=== PATIENT | female | born 1935 | race Caucasian/White ===

== ENCOUNTER 2017-07-12 18:52 | Observation (INO) | payer MEDICARE, OTHER ==
[2017-07-12 20:10] LABS: Troponin I 0.022 ng/mL (< 0.028)
[2017-07-12 21:26] VITALS: BMI 27.6
[2017-07-12 23:36] LABS: Troponin I 0.016 ng/mL (< 0.028)
[2017-07-13] MEDS ORDERED: Ondansetron ODT 4 MG TAB PO PRN (00:14)
[2017-07-13] MEDS ORDERED: Acetaminophen 500 MG TAB PO PRN (00:14)
[2017-07-13] MEDS ORDERED: hydrALAZINE 20 MG/ML VIAL SLOW IVP PRN (00:14)
[2017-07-13] MEDS ORDERED: cloNIDine 0.1 MG TAB PO PRN (00:14)
[2017-07-13] MEDS ORDERED: Ondansetron HCl/PF 4 MG/2 ML Vial IVP PRN (00:14)
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
[2017-07-13 04:53] LABS: Anion Gap 9 mmol/L (10-20); BUN (Urea Nitrogen) 16 mg/dL (9.8-20.1); Calc. Creatinine Clearance 58 mL/min (70-130); Calcium 8.9 mg/dL (7.8-10.44); Carbon Dioxide 27 mmol/L (23-31); Cardiac Risk 2.8 (Less than 4.5); Chloride 106 mmol/L (98-107); Cholesterol 151 mg/dl (< 200 Desired); Estimated GFR-MDRD 68; Glucose 97 mg/dL (83-110); HDL Cholesterol 53 mg/dL (>60 Neg Risk); LDL Cholesterol, Calculated 86 mg/dL; Potassium 3.3 mmol/L (3.5-5.1); Sodium 139 mmol/L (136-145); Triglycerides 58 mg/dL (Less than 150)
[2017-07-13 04:58] LABS: Hemoglobin 12.5 g/dL (12.0-16.0); Lymphocytes 50 % (21-51); MDiff Complete? YES; Mean Corpuscular HGB CONC 32.2 g/dL (32.0-36.0); Mean Corpuscular Hemoglobin 32.4 pg (27.0-31.0); Mean Platelet Volume 8.4 fL (7.4-10.4); Monocytes 6 % (0-10); Neutrophil 43 % (42-75); PLT Morphology Comment Appears Adequate; Platelet Count 173 thou/uL (130-400); RBC Distribution Width 12.4 % (11.5-14.5); Red Blood Cell (RBC) Count 3.85 mill/uL (4.20-5.40); White Blood Cell (WBC) Count 2.8 thou/uL (4.8-10.8)
[2017-07-13] MEDS ORDERED: Amlodipine 5 MG TAB PO SCH (09:00)
[2017-07-13] MEDS ORDERED: Famotidine 20 MG TAB PO SCH (09:00)
[2017-07-13] MEDS ORDERED: Hydrochlorothiazide 25 MG TAB PO SCH (09:00)
[2017-07-13] MEDS ORDERED: Potassium Chloride 20 MEQ TAB PO SCH (11:30)
--- NOTE | 2017-07-13 11:30 | PDOC.PN ---
- Subjective Encounter Start Date: 07/13/17 Encounter Start Time: 11:24 Ms. Singh was seen today in follow-up of chest pain. She says she feels much better, the chest pain has completely resolved. She denies any shortness of breath. she says she feels normal. - Objective Resuscitation Status: Resuscitation Status FULL:Full Resuscitation MAR Reviewed: Yes Vital Signs & Weight: Vital Signs (12 hours) Temp Pulse Resp BP Pulse Ox 07/13/17 09:17 98.7 F 59 L 16 07/13/17 07:07 98.7 F 59 L 16 131/72 94 L 07/13/17 03:15 98.9 F 62 18 118/56 L 96 Weight Weight 150 lb 8 oz I&O: 07/12/17 07/13/17 07/14/17 06:59 06:59 06:59 Intake Total 240 Balance 240 Result Diagrams: 07/13/17 03:53 07/13/17 03:53 Phys Exam - Physical Examination HEENT: PERRLA Respiratory: no wheezing, no rales, no rhonchi, clear to auscultation bilateral Cardiovascular: RRR, no significant murmur Gastrointestinal: soft, non-tender, positive bowel sounds Musculoskeletal: no edema Dx/Plan (1) Chest pain Code(s): R07.9 - CHEST PAIN, UNSPECIFIED Status: Acute (2) Aortic stenosis, moderate Code(s): I35.0 - NONRHEUMATIC AORTIC (VALVE) STENOSIS Status: Chronic (3) Hypertension Code(s): I10 - ESSENTIAL (PRIMARY) HYPERTENSION Status: Chronic - Plan * Chest Pain- resolved. This is atypical, and suspected musculo-skeletal- troponins are negative * Await Echo * HTN- blood pressure is stable * Likely discharge later today.
[2017-07-13 12:07] VITALS: BP 122/59; TEMP 98.3
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
--- NOTE | 2017-08-02 15:25 | EKG ---
Test Reason : CHEST PAIN Blood Pressure : / mmHG Vent. Rate : 061 BPM Atrial Rate : 061 BPM P-R Int : 182 ms QRS Dur : 132 ms QT Int : 510 ms P-R-T Axes : 052 074 012 degrees QTc Int : 513 ms Normal sinus rhythm Non-specific intra-ventricular conduction block T wave abnormality, consider inferior ischemia Abnormal ECG Confirmed by TOÑA MCGHEE ([id number]), fashion editor MALAIKA ROBERSON ([id number]) on 08/02/2017 3:24:41 PM Referred By: Confirmed By:TOÑA MCGHEE
== END 2017-07-13 14:52 | disposition home or self-care (01) ==
LOC: ERS 18:52 → 2SW 19:33
PROVIDERS: ADMIT Family Medicine; ATTEND Family Medicine
DX: R07.89 Other chest pain (principal); I10 Essential (primary) hypertension; I35.0 Nonrheumatic aortic (valve) stenosis; E87.6 Hypokalemia; Z79.899 Other long term (current) drug therapy; Z90.89 Acquired absence of other organs; Z98.890 Other specified postprocedural states
CPT/HCPCS: 80048; 80061; 84484; 85007; 85027; 93005; 93306; 99285; G0378; 36415

== ENCOUNTER 2017-10-15 09:21 | Outpatient (CLI) | payer MEDICARE, OTHER ==
[2017-10-15 10:32] LABS: Mean Corpuscular HGB CONC 31.9 g/dL (32.0-36.0); Mean Corpuscular Hemoglobin 32.4 pg (27.0-31.0); Mean Platelet Volume 8.8 fL (7.4-10.4); Platelet Count 204 thou/uL (130-400); RBC Distribution Width 12.5 % (11.5-14.5); Red Blood Cell (RBC) Count 3.71 mill/uL (4.20-5.40); White Blood Cell (WBC) Count 5.1 thou/uL (4.8-10.8)
[2017-10-15 10:35] LABS: INR-International Normal Ratio 1.1; PTT 31.9 SEC (22.9-36.1); Prothrombin Time 14.2 SEC (12.0-14.7)
[2017-10-15 10:56] LABS: ALT (SGPT) 19 U/L (8-55); AST (SGOT) 22 U/L (5-34); Alkaline Phosphatase 51 U/L (40-150); Anion Gap 12 mmol/L (10-20); BUN (Urea Nitrogen) 24 mg/dL (9.8-20.1); Bilirubin, Total 0.4 mg/dL (0.2-1.2); Calc. Creatinine Clearance 0 mL/min (70-130); Carbon Dioxide 23 mmol/L (23-31); Cardiac Risk 2.6 (Less than 4.5); Chloride 109 mmol/L (98-107); Cholesterol 171 mg/dl (< 200 Desired); Estimated GFR-MDRD 60; Globulin 2.4 g/dL (2.4-3.5); Glucose 91 mg/dL (83-110); HDL Cholesterol 66 mg/dL (>60 Neg Risk); LDL Cholesterol, Calculated 98 mg/dL; Potassium 3.5 mmol/L (3.5-5.1); Protein, Total 6.4 g/dL (6.0-8.3); Sodium 140 mmol/L (136-145); Triglycerides 37 mg/dL (Less than 150)
--- NOTE | 2017-10-15 22:09 | EKG ---
Test Reason : Blood Pressure : / mmHG Vent. Rate : 062 BPM Atrial Rate : 062 BPM P-R Int : 180 ms QRS Dur : 130 ms QT Int : 478 ms P-R-T Axes : 069 088 042 degrees QTc Int : 485 ms Normal sinus rhythm Non-specific intra-ventricular conduction block Nonspecific T wave abnormality Abnormal ECG When compared with ECG of 12-JUL-2017 19:02, No significant change was found Confirmed by KALLIE TAMAYO M.D. ([id number]) on 10/15/2017 10:09:30 PM Referred By: JOCELYNE Confirmed By:KALLIE TAMAYO M.D.
== END 2017-10-15 09:22 | disposition home or self-care (01) ==
LOC: LABBT 09:21
PROVIDERS: ATTEND Internal Medicine Cardiovascular Disease
DX: Z01.818 Encounter for other preprocedural examination (principal); R01.1 Cardiac murmur, unspecified
CPT/HCPCS: 80053; 80061; 85027; 85610; 85730; 93005; 93010

== ENCOUNTER → 2017-10-30 | Day surgery (SDC) | payer MEDICARE, OTHER ==
[2017-10-15 10:18] VITALS: BMI 27.1
[~2017-10-30] MED LIST: Diazepam 5 MG TAB ONE; Iopamidol 370 76% 100 ML VIAL ONE; Lidocaine 1% (PF) 30 ML VIAL ONE; Midazolam HCl 2 mg/2 ml Vial ONE
[2017-10-30 07:11] LABS: Cardiac Risk 2.6 (Less than 4.5)
--- NOTE | 2017-10-30 17:25 | CON ---
DATE OF CONSULTATION: 10/30/2017 HISTORY OF PRESENT ILLNESS: Ms. Singh is an 82-year-old woman, who was brought in for elective car diac catheterization today. She has history of aortic stenosis, which has been followed by Dr. Troy medel in [place]. She had a recent echo in 06/2017, which showed a moderate to severe aortic stenosis and an ejection fraction of 55% to 60%. Since that time, she has had progressive shortness of breat h. She was brought in today for cardiac catheterization, which revealed severe LAD and OM branch gabriele noses. Her valve data at the time of catheterization showed a peak gradient of 49, a mean gradient o f 41, and an aortic valve area of 0.42. I have been asked to see her to discuss aortic valve replace ment and coronary artery bypass grafting. PAST MEDICAL HISTORY: 1. Hypertension. 2. Aortic stenosis. 3. Coronary artery disease. PAST SURGICAL HISTORY: 1. Tonsillectomy. 2. Bilateral greater saphenous vein stripping for varicose veins. MEDICATIONS AT HOME: 1. Amlodipine 5 mg every day. 2. Hydrochlorothiazide 12.5 mg daily. 3. Quinapril 20 mg every day. ALLERGIES: None. SOCIAL HISTORY: She lives at home in [facility] with her . Her daughter lives across the street. She continues to do most of her daily activities until shortness of breath has begun to limit her a ctivity. REVIEW OF SYSTEMS: Ten point review of systems is performed and is negative except as above. PHYSICAL EXAMINATION: GENERAL: This is a well-developed, well-nourished woman resting comfortably post-catheterization. VITAL SIGNS: Her heart rate is 78 and regular, blood pressure is 120/70. HEENT: Sclerae nonicteric. Pupils equal and round bilaterally. NECK: Supple. There is no adenopathy. LUNGS: Chest is clear bilaterally. HEART: Rhythm is regular. She has a harsh systolic ejection murmur heard throughout precordium. ABDOMEN: Soft and nontender. EXTREMITIES: No cyanosis, clubbing or edema. VASCULAR: She has palpable carotid, radial, femoral and dorsalis pedis pulses bilaterally. She does have scars from greater saphenous vein stripping in the past. Radial artery Praveen's test was perfor med in the left arm and her left radial artery is adequate for harvest with good ulnar flow. LABORATORY DATA: Of note, hemoglobin is 12.0, platelet count 204,000. Creatinine is 0.9, potassium is 3.5. PT/INR is 1.1. I have reviewed her chest x-ray, which is clear with no dominant lung mass. She does have a thin mediastinum. ASSESSMENT AND PLAN: This is a pleasant 82-year-old woman with severe aortic stenosis and 2-vessel c oronary artery disease. I have discussed aortic valve replacement with bioprosthetic valve and coron reji artery bypass grafting, probably with a mammary artery to left anterior descending and left radia l artery to her obtuse marginal. Risks, benefits, and options have been outlined with her and she is agreeable to proceed.
== END ==
LOC: CCL 05:53
PROVIDERS: ATTEND Internal Medicine Cardiovascular Disease
PROC: 4A023N8 Measurement of Cardiac Sampling and Pressure, Bilateral, Percutaneous Approach (ICD-10-PCS; principal; 2017-10-30)
DX: I25.10 Atherosclerotic heart disease of native coronary artery without angina pectoris (principal); I35.0 Nonrheumatic aortic (valve) stenosis; I10 Essential (primary) hypertension; Z98.890 Other specified postprocedural states
CPT/HCPCS: 76942; 80061; 93460; 93561; C1769; 36415; 99152; 99153; J1644; J2001; J2250

== ENCOUNTER 2017-11-05 15:30 | Inpatient (IN) | payer MEDICARE, OTHER ==
[2017-11-06] MEDS ORDERED: Albumin 5% 500 ML ONE (06:13)
[2017-11-06] MEDS ORDERED: Dexmedetomidine 200 MCG/2 ML VIAL ONE (06:32)
[2017-11-06] MEDS ORDERED: Fentanyl 250 MCG/5 ML VIAL ONE (06:32)
[2017-11-06] MEDS ORDERED: Midazolam HCl 5 mg/5 ml Vial ONE (06:32)
[2017-11-06] MEDS ORDERED: Norepinephrine 8 MG/0.9% NS 250 ML ONE (06:32)
[2017-11-06] MEDS ORDERED: Vecuronium 10 MG VIAL ONE ×3 (06:32→15:54)
[2017-11-06] MEDS ORDERED: Midazolam HCl 2 mg/2 ml Vial ONE (06:49)
[2017-11-06] MEDS ORDERED: Midazolam HCl 2 mg/ml Syrup 5 ml UD Cup ONE (06:49)
[2017-11-06] MEDS ORDERED: CEFAZOLIN/Water 2 GM/20 ML SYRINGE ONE (06:56)
[2017-11-06] MEDS ORDERED: Heparin 10,000 UNITS/1 ML VIAL 30,000 UNITS in Sodium Chloride 0.9% 1,000 ML FS SCH (07:15)
[2017-11-06] MEDS ORDERED: Insulin Regular 300 UNITS/3 ML VIAL ONE (09:40)
[2017-11-06] MEDS ORDERED: Promethazine HCl 25 MG/ML VIAL IM PRN (11:41)
[2017-11-06] MEDS ORDERED: Bisacodyl 10 MG SUPP PR PRN (11:41)
[2017-11-06] MEDS ORDERED: Guaifenesin DM 100-10/5 ML UDCUP PO PRN (11:41)
[2017-11-06] MEDS ORDERED: CEFAZOLIN/Water 2 GM/20 ML SYRINGE SLOW IVP SCH (11:41)
[2017-11-06] MEDS ORDERED: HYDROcodone/Acetaminophen 5/325 mg Tablet PO PRN ×2 (11:41)
[2017-11-06] MEDS ORDERED: Acetaminophen 325 MG TAB PO PRN (11:41)
[2017-11-06] MEDS ORDERED: Norepinephrine 8 MG/0.9% NS 250 ML IVPB PRN (11:41)
[2017-11-06] MEDS ORDERED: DOPamine 400 MG/D5W 250 ML 250 ML IVPB PRN (11:41)
[2017-11-06] MEDS ORDERED: Mag-Al 1200 mg/1200 mg/30 ML UDCUP PO PRN (11:41)
[2017-11-06] MEDS ORDERED: Nitroglycerin 50 MG/250 ML BOT 250 ML IVPB PRN (11:41)
[2017-11-06] MEDS ORDERED: Ondansetron HCl/PF 4 MG/2 ML Vial IVP PRN (11:41)
[2017-11-06] MEDS ORDERED: Bisacodyl 5 MG TAB PO PRN (11:41)
[2017-11-06] MEDS ORDERED: Fentanyl 100 MCG/2 ML VIAL SLOW IVP PRN ×2 (11:41)
[2017-11-06] MEDS ORDERED: Post-Op Insulin Drip Protocol IVPB ONE (11:41)
[2017-11-06] MEDS ORDERED: Morphine 4 MG/ML VIAL SLOW IVP PRN (11:41)
[2017-11-06] MEDS ORDERED: Hetastarch 6% 500 ML 500 ML IVPB PRN (11:41)
[2017-11-06] MEDS ORDERED: hydrALAZINE 20 MG/ML VIAL SLOW IVP PRN (11:41)
[2017-11-06] MEDS ORDERED: Dextrose 5% in Water 1,000 ML IV PRN (12:04)
[2017-11-06] MEDS ORDERED: Insulin Regular 300 UNITS/3 ML VIAL SC PRN (12:04)
[2017-11-06] MEDS ORDERED: Dextrose 50% Abboject 50 ML SYRINGE SLOW IVP PRN (12:04)
[2017-11-06] MEDS: Ketorolac Tromethamine 30 MG/ML VIAL IVP SCH ×2 (12:14→17:12)
[2017-11-06] MEDS: D5 1/2 NS w/20 mEq KCL 1,000 ML IV SCH (12:14)
[2017-11-06 12:15] LABS: Actual Bicarbonate (HCO3a) 22.3 mEq/L (22-26); Base Excess (BEa) -1.3 mEq/L (0 (+/-) 2.5); CO2 Tension 33.2 mmHg (35.0-45.0); Hematocrit-ABG 29.7 % (36.0-47.0); Hemoglobin (Hb) 10.2 g/dL (12.0-16.0); O2 Tension (PaO2) 204.6 mmHg (80.0-100.0); pH, Arterial 7.45 (7.35-7.45)
[2017-11-06 12:16] LABS: Puncture Site LINE
[2017-11-06 12:17] LABS: #Eosinphils 0.1 thou/uL (0.0-0.7); #Lymphocytes 1.2 thou/uL (1.20-3.40); #Monocytes 0.1 thou/uL (0.11-0.59); #Neutrophils 6.9 thou/uL (1.40-6.50); %Basophils 0.3 % (0.0-1.0); %Eosinophils 1.2 % (0.0-10.0); %Lymphocytes 13.9 % (21.0-51.0); %Monocytes 1.4 % (0.0-10.0); %Neutrophils 83.2 % (42.0-75.0); Hemoglobin 10.5 g/dL (12.0-16.0); Mean Platelet Volume 7.6 fL (7.4-10.4); Platelet Count 142 thou/uL (130-400); RBC Distribution Width 12.5 % (11.5-14.5); Red Blood Cell (RBC) Count 3.29 mill/uL (4.20-5.40); White Blood Cell (WBC) Count 8.3 thou/uL (4.8-10.8)
[2017-11-06 12:21] LABS: INR-International Normal Ratio 1.5; Prothrombin Time 18.2 SEC (12.0-14.7)
[2017-11-06 12:22] LABS: PTT 38.1 SEC (22.9-36.1)
[2017-11-06 12:33] LABS: Anion Gap 10 mmol/L (10-20); BUN (Urea Nitrogen) 14 mg/dL (9.8-20.1); Calc. Creatinine Clearance 71 mL/min (70-130); Calcium 7.3 mg/dL (7.8-10.44); Carbon Dioxide 22 mmol/L (23-31); Chloride 114 mmol/L (98-107); Estimated GFR-MDRD 86; Glucose 69 mg/dL (83-110); Potassium 3.2 mmol/L (3.5-5.1); Sodium 143 mmol/L (136-145)
--- NOTE | 2017-11-06 12:42 | OP ---
DATE OF OPERATION: 11/06/2017 PREOPERATIVE DIAGNOSES: Aortic stenosis/coronary artery disease. POSTOPERATIVE DIAGNOSES: Aortic stenosis/coronary artery disease. PROCEDURES: 1. Aortic valve replacement with #19 Magna bioprosthetic valve. 2. Coronary artery bypass grafting x2 - left internal mammary artery 1.25-mm LAD - good conduit targ et. 3. Left radial artery 1.25-mm OM1 - good conduit target. 4. Left radial artery harvest. SURGEON: Dr. Ant Logan, Dr. Everton Loo. ANESTHESIA: General endotracheal - Dr. Jens Mendoza. PUMP TIME: 98 minutes. CROSS-CLAMP TIME: 80 minutes. LOW CORE TEMPERATURE: 32-degree Celsius. DAIRY WORKER: Victor M. DRAINS: 24-Burkinan chest tubes x2. DRIPS: Levophed at 9 mcg per minute. TRANSFUSIONS: One platelet pack. DESCRIPTION OF PROCEDURE: After consent was obtained, patient was brought to operating room and plac ed in supine on the operating room table. Appropriate anesthetic monitor was placed and general endo tracheal anesthesia induced. Chest, abdomen, and legs and left arm were prepped and draped in usual sterile fashion. Patient had previously undergone bilateral greater saphenous vein stripping. Left radial artery was harvested as a pedicle graft. Wounds were irrigated and closed in layers. St aples were placed in the skin due to the thin nature of her epidermis. Sterile dressing was applied and the arm tucked. Median sternotomy was performed. Left internal mammary artery was harvested as a pedicle graft. Patient was systemically heparinized. Distal pedicle was divided and infused with papaverine. Thymic fat and pericardium were divided with electrocautery. Pericardial stay sutures w ere placed. Aortic and atrial cannulation performed. After adequate heparinization, retrograde prim e was performed and patient was placed on cardiopulmonary bypass. Left ventricular sump drain was pl aced to the right superior pulmonary vein. Distal targets were marked. Aortic cross-clamp was appli ed, antegrade sanguinous cardioplegic arrest obtained. One liter of antegrade cold cardioplegia was given. Topical cold solution was used. Left radial artery was anastomosed to the OM1 in end-to-side fashion with running 7-0 Prolene suture. Pedicle screw with interrupted 6-0 Prolene suture. Mammar y artery was brought through a window in the pericardium and anastomosed to the distal LAD in end-to- side fashion with running 7-0 Prolene suture. Anastomosis was briefly tested and was hemostatic. Pe dicle screw was interrupted with 6-0 Prolene suture. A 500 mL of antegrade [place] N[place] cardioplegia was given. A transverse hockey stick aortotomy was performed. Aortic stay sutures were placed. Valve was inspected. It was a three-leaflet valve that was heavily calcified. Leaflets were debrided and annulus decalcified. Annulus measured at #19. A 19-Magna bioprosthetic valve was selected and washe d. Pledgeted 2-0 Ethibond sutures were placed in the annulus. These sutures were passed through the sewing ring and the valve was seated. Valve was secured with 4 knots. Valve seated nicely and core knots were all secured adequately. The CO2 was infused in the pericardial well throughout the open portion of the procedure. Aortotomy was closed in 2-layer running fashion with pledgeted 4-0 Prolene suture. Aortotomy was then treated with BioGlue. Slit was made in the aorta. The radial artery wa s anastomosed to the aorta with running 7-0 Prolene suture. After adequate deairing, patient was marilee andres in Trendelenburg position. Cross-clamp was removed. Ventricular pacing wires were placed. The patient was warmed and weaned from cardiopulmonary bypass. After resumption of sinus rhythm, good he modynamics, temperature greater than 36.5, bypass was discontinued. Transfusions were given. Decann ulation was performed and pursestring sutures secured. Atrial and aortic cannulation sites were secu red with their pursestrings along with a pledgeted at 4-0 Prolene suture. Aortic roots, vent site wa s secured with pledgeted 4-0 Prolene suture. Sump was removed and its pursestring sutures secured. Protamine was administered. Hemostasis was ensured. Platelet pack was administered. A 24-Burkinan st raight chest tubes were placed in mediastinum x2. After adequate hemostasis had been obtained, parikh um was treated with vancomycin paste. Sternum was closed with #5 wire. Sternum was treated with marilee telet-rich plasma and wires twisted. Wounds irrigated and treated with platelet-poor plasma, closed in multiple layers. Needle, sponge, and instrument counts were all reported as correct at the end of the procedure. Patient was transferred to the intensive care unit in stable, but critical condition .
[2017-11-06] MEDS: Norepinephrine 8 MG/250 ML BAG IVPB PRN (13:07)
--- NOTE | 2017-11-06 13:46 | RAD ---
RADIOGRAPH CHEST 1 VIEW: Date: 11/06/2017 Time: 11:21 a.m. HISTORY: An 82-year-old female, status post open heart surgery. COMPARISON: 07/12/2017 FINDINGS: Multiple new placements: Prosthetic cardiac valve, sternotomy wires, one or two left paramedian ches t tubes, right subclavian central venous catheter with the distal tip overlying the right atrium, and endotracheal tube in mid thoracic trachea, approximately 3.5 to 4 cm superior to the keshia. No pul monary edema. New focus of subsegmental atelectasis in the left upper lobe. The rest of the lungs a re clear. This is a supine image, which would be insensitive for pneumothorax detection. There is a nother new finding of mild elevation of the left hemidiaphragm. IMPRESSION: 1. Status post open heart surgery with placement of new prosthetic cardiac valve. 2. Life support lines, as listed above. 3. Other than subsegmental atelectasis of the left upper lobe, the lungs are clear. 4. New mild elevation of left hemidiaphragm. DIANNA [] POS: SABAS
[2017-11-06] MEDS: CEFAZOLIN 1 GM, Syringe 2.5 ML in Sterile Water 7.5 ML SLOW IVP SCH (14:33)
[2017-11-06] MEDS: Potassium Chloride 20 MEQ/100 ML PREMIX BAG IVPB PRN ×2 (14:33→19:04)
[2017-11-06] MEDS ORDERED: Papaverine 60 MG/2 ML VIAL ONE (15:54)
[2017-11-06] MEDS ORDERED: Lidocaine 1% PF 5 ML VIAL ONE (15:54)
[2017-11-06] MEDS ORDERED: Potassium Chloride 60 MEQ/30 ML VIAL ONE (15:54)
[2017-11-06] MEDS ORDERED: Sodium Bicarb 50 MEQ/50 ML VIAL ONE (15:54)
[2017-11-06] MEDS ORDERED: Thrombin 5000 UNITS/5 ML VIAL ONE (15:54)
[2017-11-06] MEDS ORDERED: Protamine Sulfate 250 MG/25 ML VIAL ONE (15:54)
[2017-11-06] MEDS ORDERED: Albumin 25% 25 GM/100 ML BOT ONE (15:54)
[2017-11-06] MEDS ORDERED: Calcium Chloride 1 GM/10 ML Abboject SYRINGE ONE (15:54)
[2017-11-06] MEDS ORDERED: Aminocaproic Acid 5 GM/20 ML VIAL ONE (15:54)
[2017-11-06] MEDS ORDERED: Heparin 30,000 units/30 ml VIAL ONE (15:54)
[2017-11-06] MEDS ORDERED: PROPOFOL 200 MG/20 ML VIAL ONE (15:54)
[2017-11-06] MEDS ORDERED: Magnesium 5 GM/10 ML VIAL ONE (15:54)
[2017-11-06] MEDS ORDERED: Lidocaine 2% PF 100 mg/5 ml Syringe ONE (15:54)
[2017-11-06] MEDS ORDERED: Heparin 5,000 UNITS/ML VIAL ONE (15:54)
--- NOTE | 2017-11-06 15:56 | EKG ---
Test Reason : POST CABG Blood Pressure : / mmHG Vent. Rate : 087 BPM Atrial Rate : 087 BPM P-R Int : 166 ms QRS Dur : 132 ms QT Int : 402 ms P-R-T Axes : 055 078 090 degrees QTc Int : 483 ms Normal sinus rhythm Right bundle branch block ST elevation, consider early repolarization, pericarditis, or injury Abnormal ECG Confirmed by JAI CARRINGTON ([id number]) on 11/06/2017 3:56:34 PM Referred By: GARFIELD EASON Confirmed By:JAI CARRINGTON
[2017-11-06 17:00] LABS: Actual Bicarbonate (HCO3a) 15.9 mEq/L (22-26); Base Excess (BEa) -7.7 mEq/L (0 (+/-) 2.5); CO2 Tension 26.4 mmHg (35.0-45.0); Hematocrit-ABG 31.2 % (36.0-47.0); Hemoglobin (Hb) 10.2 g/dL (12.0-16.0); O2 Tension (PaO2) 159.1 mmHg (80.0-100.0)
[2017-11-06 17:01] LABS: Calcium, Ionized 1.1 mmol/L (1.12-1.30); Puncture Site LINE
[2017-11-06] MEDS: Vancomycin HCl 1 GM in Premix Bag 1 BAG IVPB SCH (17:13)
[2017-11-06 17:49] LABS: Hemoglobin 10.4 g/dL (12.0-16.0)
[2017-11-06 18:04] LABS: Potassium 2.8 mmol/L (3.5-5.1)
[2017-11-06] MEDS ORDERED: Famotidine/PF 20 mg/2ml Vial SLOW IVP SCH (21:00)
[2017-11-06] MEDS ORDERED: Famotidine 40 MG/4 ML VIAL SLOW IVP SCH (21:00)
[2017-11-07] MEDS: Ketorolac Tromethamine 30 MG/ML VIAL IVP SCH ×5 (00:10→23:18)
[2017-11-07] MEDS: CEFAZOLIN 1 GM, Syringe 2.5 ML in Sterile Water 7.5 ML SLOW IVP SCH ×2 (00:11→06:13)
[2017-11-07] MEDS: Norepinephrine 8 MG/250 ML BAG IVPB PRN (00:20)
[2017-11-07 05:00] LABS: #Basophils 0.2 thou/uL (0.0-0.2); #Lymphocytes 0.7 thou/uL (1.20-3.40); #Monocytes 0.5 thou/uL (0.11-0.59); #Neutrophils 9.7 thou/uL (1.40-6.50); %Basophils 1.5 % (0.0-1.0); %Eosinophils 0.1 % (0.0-10.0); %Lymphocytes 5.9 % (21.0-51.0); %Monocytes 4.3 % (0.0-10.0); %Neutrophils 88.3 % (42.0-75.0); Hemoglobin 9.7 g/dL (12.0-16.0); Mean Corpuscular Hemoglobin 32.6 pg (27.0-31.0); Mean Platelet Volume 8.8 fL (7.4-10.4); Platelet Count 122 thou/uL (130-400); Red Blood Cell (RBC) Count 2.97 mill/uL (4.20-5.40)
[2017-11-07 05:34] LABS: Anion Gap 12 mmol/L (10-20); BUN (Urea Nitrogen) 21 mg/dL (9.8-20.1); Calc. Creatinine Clearance 55 mL/min (70-130); Calcium 7.5 mg/dL (7.8-10.44); Carbon Dioxide 20 mmol/L (23-31); Chloride 113 mmol/L (98-107); Estimated GFR-MDRD 64; Glucose 146 mg/dL (83-110); Potassium 4.4 mmol/L (3.5-5.1); Sodium 141 mmol/L (136-145)
[2017-11-07 06:06] VITALS: BMI 28.8
[2017-11-07] MEDS: Vancomycin HCl 1 GM in Premix Bag 1 BAG IVPB SCH (06:13)
[2017-11-07] MEDS: Aspirin 325 MG TAB PO SCH (08:30)
--- NOTE | 2017-11-07 08:35 | CON ---
DATE OF CONSULTATION: 11/06/2017 REASON FOR CONSULTATION: Assist with cardiac management status post AVR and bypass surgery. HISTORY OF PRESENT ILLNESS: Ms. Singh is a pleasant 82-year-old woman who I have seen and evaluate d in the past. She has a history of CAD with a recent angiogram performed last week where she was f ound to have severe stenosis of the LAD and OM branch. She was also found to have a severe aortic st enosis with an aortic valve area of 0.42. She underwent 2-vessel bypass and AVR with a 19 mm valve. She was seen and evaluated in the postoper ative period. She is currently extubated. Her only complaint is constipation. She is on low dose n orepinephrine. Her pacemaker leads have been removed and her chest tube has also been removed. PAST MEDICAL HISTORY: Hypertension. FAMILY HISTORY: Negative for CAD. SOCIAL HISTORY: She is currently with children. No current tobacco or alcohol use. CURRENT MEDICATIONS: Hydrochlorothiazide, MiraLax, melatonin, vitamin C, CoQ10, calcium, aspirin, fo lic acid, amlodipine, and omega 3 fatty acid, Accupril, and isosorbide. REVIEW OF SYSTEMS: Ten point review of systems reviewed and as above, otherwise negative. PHYSICAL EXAMINATION: VITAL SIGNS: Blood pressure 117/75, pulse 77, temperature afebrile. GENERAL: Patient is a pleasant female who is in no acute distress. The patient appears her stated ag e. NEUROLOGIC: The patient is alert and oriented times 3 with no focal neurologic deficits. HEENT: Sclerae without icterus. Mouth has moist mucous membranes with normal pallor. NECK: No JVD. Carotid upstroke brisk. No bruits bilaterally. LUNGS: Clear to auscultation with unlabored respirations. BACK: No scoliosis or kyphosis. CARDIAC: Regular rate and rhythm with a pericardial rub. ABDOMEN: Soft, nontender, nondistended. No peritoneal signs present. No hepatosplenomegaly. No abn ormal striae. EXTREMITIES: 2+ femoral and 2+ dorsalis pedis pulses. No cyanosis, clubbing, or edema. SKIN: No gross abnormalities. PERTINENT LABS: Hemoglobin 9.7, creatinine 0.85. IMPRESSION: 1. Coronary artery disease. 2. Severe . 3. Status post aortic valve replacement and bypass surgery. RECOMMENDATIONS: Ms. Singh continues to be on low dose pressor agents. We will defer beta federico s until she is off pressor agents and is maintaining appropriate blood pressure. She currently has D ulcolax p.r.n. for constipation. Continue aspirin.
[2017-11-07] MEDS: Famotidine 20 MG TAB PO SCH ×2 (08:44→21:01)
--- NOTE | 2017-11-07 08:48 | RAD ---
CHEST ONE VIEW: History: Open heart surgery. Comparison: Chest radiograph prior day. FINDINGS: Patient has been extubated. Right IJ central venous catheter is similar. There are atelectatic change s in the left lung. No large pneumothorax is appreciated. IMPRESSION: Expected post-operative findings without complication. POS: TPC
[2017-11-07] MEDS: D5 1/2 NS w/20 mEq KCL 1,000 ML IV SCH (10:53)
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
[2017-11-08 04:43] LABS: #Lymphocytes 1.7 thou/uL (1.20-3.40); #Monocytes 0.6 thou/uL (0.11-0.59); #Neutrophils 8.5 thou/uL (1.40-6.50); %Basophils 0.1 % (0.0-1.0); %Eosinophils 0.1 % (0.0-10.0); %Lymphocytes 15.8 % (21.0-51.0); %Monocytes 5.7 % (0.0-10.0); %Neutrophils 78.3 % (42.0-75.0); Hemoglobin 9.7 g/dL (12.0-16.0); Mean Corpuscular HGB CONC 33.5 g/dL (32.0-36.0); Mean Corpuscular Hemoglobin 32.9 pg (27.0-31.0); Mean Corpuscular Volume 98.1 fl (81.0-99.0); Mean Platelet Volume 9.2 fL (7.4-10.4); Platelet Count 85 thou/uL (130-400); RBC Distribution Width 13.1 % (11.5-14.5); Red Blood Cell (RBC) Count 2.94 mill/uL (4.20-5.40); White Blood Cell (WBC) Count 10.9 thou/uL (4.8-10.8)
[2017-11-08 05:33] LABS: Anion Gap 11 mmol/L (10-20); BUN (Urea Nitrogen) 39 mg/dL (9.8-20.1); Calc. Creatinine Clearance 23 mL/min (70-130); Calcium 7.7 mg/dL (7.8-10.44); Carbon Dioxide 20 mmol/L (23-31); Chloride 108 mmol/L (98-107); Estimated GFR-MDRD 22; Glucose 153 mg/dL (83-110); Potassium 4.8 mmol/L (3.5-5.1); Sodium 134 mmol/L (136-145)
[2017-11-08] MEDS: Ketorolac Tromethamine 30 MG/ML VIAL IVP SCH ×2 (06:09→12:43)
--- NOTE | 2017-11-08 07:46 | RAD ---
CHEST 1 VIEW: Date: 11/08/17 HISTORY: Chest surgery. Follow-up. COMPARISON: 11/07/17. FINDINGS: Cardiac silhouette is magnified and enlarged. Pulmonary vasculature is upper limits of normal. Opacit y at the right base has increased slightly with the appearance of pleural fluid. Bibasilar atelectasi s is otherwise stable. Mediastinum is midline with postoperative changes and a right internal jugular central venous catheter. No lobar consolidation or evidence of pneumothorax. IMPRESSION: Slight interval increase in right pleural fluid. Otherwise stable postoperative appearance of the [address]. POS: [facility]
[2017-11-08] MEDS: Aspirin 325 MG TAB PO SCH (08:21)
[2017-11-08] MEDS ORDERED: Bisacodyl 5 MG TAB PO PRN (08:22)
[2017-11-08] MEDS ORDERED: Bisacodyl 10 MG SUPP PR PRN (08:22)
[2017-11-08] MEDS ORDERED: Mag-Al 1200 mg/1200 mg/30 ML UDCUP PO PRN (08:22)
[2017-11-08] MEDS ORDERED: Guaifenesin DM 100-10/5 ML UDCUP PO PRN (08:22)
[2017-11-08] MEDS ORDERED: Nitroglycerin 0.4 MG TAB (25 Tab Bottle) SL PRN (08:22)
[2017-11-08] MEDS ORDERED: Artificial Tears 18 DROP/0.9 ML EA EYE PRN (08:22)
[2017-11-08] MEDS ORDERED: Furosemide 20 MG/2 ML VIAL SLOW IVP SCH (08:22)
[2017-11-08] MEDS ORDERED: diphenhydrAMINE 25 MG CAP PO PRN (08:22)
[2017-11-08] MEDS ORDERED: Zolpidem Tartrate 5 MG TAB PO PRN (08:22)
[2017-11-08] MEDS ORDERED: Mineral Oil ENEMA PR PRN (08:22)
[2017-11-08] MEDS ORDERED: Albumin 25% 25 GM/100 ML BOT IVPB SCH ×2 (08:49→18:00)
--- NOTE | 2017-11-08 09:28 | PRG ---
DATE OF SERVICE: 11/08/2017 Ms. Singh said she is feeling well. She is sitting up in a chair. PHYSICAL EXAMINATION: VITAL SIGNS: She is afebrile. She is on 2 liter cannula. Heart rate 78, blood pressure 101/61. LUNGS: Remarkable for fine crackles at her bases. HEART: Regular rhythm. S1 and S2 are normal. She does not have a loud S3 consistent with her biopr osthetic valve. ABDOMEN: Abdomen is soft and nontender. EXTREMITIES: Warm without edema. LABORATORY DATA: White count 10.9, hemoglobin 9.7, platelets 85,000. Sodium 134, creatinine 4.8, chloride 108, bicarbonate 20, BUN 39, creatinine 2.11. IMPRESSION: 1. Status post aortic valve and coronary bypass grafting. 2. Renal insufficiency. Her intake and output is positive 595. Her urine output has only been 5 mL an hour since midnight. She probably needs more volume. This will need to be monitored closely.
--- NOTE | 2017-11-08 14:41 | PRG ---
DATE OF SERVICE: 11/08/2017 SUBJECTIVE: Ms. Singh is doing well. She was seen ambulating. No current complaints. PHYSICAL EXAMINATION: VITAL SIGNS: Blood pressure 124/67, pulse 69, temperature 97.8. LUNGS: Clear to auscultation. HEART: Regular rate and rhythm. ABDOMEN: Soft, nontender, nondistended. EXTREMITIES: No edema. IMPRESSION: 1. Coronary artery disease status post bypass surgery. 2. Aortic stenosis, status post aortic valve replacement. RECOMMENDATIONS: Patient currently on aspirin. We will add low dose beta federico therapy and statin treatment. Continue ambulation and incentive spirometry.
[2017-11-08] MEDS ORDERED: DOPamine 400 MG/D5W 250 ML 250 ML IVPB SCH (14:45)
[2017-11-08] MEDS ORDERED: Digoxin 0.5 MG/2 ML AMP SLOW IVP SCH ×2 (16:00→18:00)
[2017-11-08] MEDS ORDERED: Vasopressin 40 UNIT, Admixture Fee 1 EACH in Sodium Chloride 0.9% 100 ML IV SCH (17:30)
[2017-11-08] MEDS: Atorvastatin Calcium 40 MG TAB PO SCH (20:51)
[2017-11-08] MEDS: Famotidine 20 MG TAB PO SCH (20:51)
[2017-11-08] MEDS: Metoprolol Tartrate 25 MG TAB PO SCH (20:52)
[2017-11-09 05:15] LABS: Anion Gap 15 mmol/L (10-20); BUN (Urea Nitrogen) 62 mg/dL (9.8-20.1); Calc. Creatinine Clearance 19 mL/min (70-130); Carbon Dioxide 16 mmol/L (23-31); Chloride 106 mmol/L (98-107); Estimated GFR-MDRD 17; Glucose 185 mg/dL (83-110); Potassium 5.4 mmol/L (3.5-5.1); Sodium 132 mmol/L (136-145)
[2017-11-09 05:24] LABS: #Lymphocytes 2.1 thou/uL (1.20-3.40); #Monocytes 0.6 thou/uL (0.11-0.59); %Basophils 0.3 % (0.0-1.0); %Eosinophils 0.2 % (0.0-10.0); %Monocytes 5.2 % (0.0-10.0); %Neutrophils 76.3 % (42.0-75.0); Hemoglobin 9.8 g/dL (12.0-16.0); Mean Corpuscular HGB CONC 32.8 g/dL (32.0-36.0); Mean Corpuscular Volume 97.6 fl (81.0-99.0); Mean Platelet Volume 10.1 fL (7.4-10.4); Platelet Count 60 thou/uL (130-400); Red Blood Cell (RBC) Count 3.05 mill/uL (4.20-5.40); White Blood Cell (WBC) Count 11.8 thou/uL (4.8-10.8)
[2017-11-09] MEDS ORDERED: Furosemide 40 MG/4 ML VIAL SLOW IVP SCH (06:45)
[2017-11-09] MEDS: Aspirin 325 mg Enteric Coated Tablet PO SCH (09:00)
--- NOTE | 2017-11-09 09:37 | PRG ---
DATE OF SERVICE: 11/09/2017 SUBJECTIVE: Ms. Lisa Singh is doing better. Blood pressure is up to 160-170 range with the add ition of vasopressin yesterday. OBJECTIVE: VITAL SIGNS: Oximetry is 94. She is on nasal cannula. Blood pressure is 139/79, heart rate is 58. LUNGS: Remarkable for fine crackles at her bases. HEART: Regular rhythm. ABDOMEN: Soft. LABORATORY DATA: White count 11.8, hemoglobin 9.8, platelets 60,000. Sodium 132, potassium is 5.4, chloride 106, bicarbonate 16, BUN 62, creatinine 2.64. Urine output santos s fluctuated as high as 20 mL this morning, it was 5-13 mL an hour overnight. ASSESSMENT AND PLAN: Probably should check her potassium this afternoon. Make sure she is not more hyperkalemic or more acidemic. She was given a dose of Lasix this morning. She is back in sinus rhythm. She had atrial fibrillation with a dopamine. She will remain in critic al Care Unit.
--- NOTE | 2017-11-09 10:26 | PQF ---
CLINICAL DOCUMENTATION IMPROVEMENT CLARIFICATION FORM: ICD-10 Updated PLEASE DO AN ADDENDUM TO THE PROGRESS NOTE WITH ANY DOCUMENTATION UPDATES OR ADDITIONS AND CARRY THROUGH TO DC SUMMARY. THANK YOU. DATE: 11/09 ATTN: DR. MOHAN EASON Please exercise your independent, professional judgment in responding to the clarification form. Clinical indicators are provided on the bottom of this form for your review Please check appropriate box(s): [ x ] Acute Renal Failure (ARF) / Acute Kidney Injury (LILLIE) (Please specify associated condition, if applicable) [ x] Acute Tubular Necrosis (ATN) [ ] Other Etiology or underlying conditions related to the diagnosis of ARF / LILLIE: [ ] Acute on Chronic Renal Failure please specify Stage of CKD (see below) [ ] Other diagnosis [ ] Unable to determine National Kidney Foundation Guidelines for CKD Staging Stage I Kidney damage with normal or increased GFR GFR > 90 Stage II Kidney damage with mildly decreased GFR GFR 60-89 Stage III Kidney damage with moderately decreased GFR GFR 30-59 Stage IV Kidney damage with severely decreased GFR GFR 16-29 Stage V Kidney failure GFR<15 ESRD End Stage Renal Disease On dialysis Acute Renal Failure/Acute Kidney Failure defined as: Increases in SCr by (>) 0.3 mg/dl within 48 hours OR- Increases in SCr by (>) 1.5 times baseline, known or presumed to have occurred within the prior 7 days OR- Urine volume < 0.5 ml/kg/hour for 6 hours (KDIGO supplement 2012 for RIFLE/JEAN-CLAUDE criteria) For continuity of documentation, please document condition throughout progress notes and discharge summary. Thank You. CLINICAL INDICATORS - SIGNS / SYMPTOMS / LABS ATTENDING PN 11/07: UOP MARGINAL; PN 11/09: UOP REMAINS MARGINAL (10-15 / HR); CREAT 2.6 PULMONOLOGY PN 11/08: LAB DATA: BUN 39, CR 2.11 IMPRESSION: 2) RENAL INSUFFICIENCY. ...SHE PROBABLY NEEDS MORE VOLUME. THIS WILL NEED TO BE MONITORED CLOSELY. BUN: 14 CR: 0.66 GFR: 86 (11/06, POST-OP) 21 0.85 64 (11/07) 39 2.11 22 (11/08) 62 2.64 17 (11/09) RISK FACTORS: S/P AVR & CABG X2 (11/06) MARGINAL URINE OUTPUT TREATMENTS: VASOPRESSIN (11/08 - PRESENT) MONITORING URINE OUTPUT SERIAL BASEMET THANK YOU! Irma (This form is maintained as a part of the permanent medical record) 2014 [employer]. All Rights Reserved Irma Oneill RN, BSN [email or web address] Office: [phone] [facility]
--- NOTE | 2017-11-09 14:07 | PDOC.CTH ---
Cardiology Progress Note - Subjective No complaints today. In bed about to get to chair. - ROS shortness of breath - Objective Vital Signs Temp Pulse Resp Pulse Ox 11/09/17 08:00 98.4 F 79 19 93 L 11/09/17 07:20 94 L 11/09/17 04:00 97.9 F Weight 164 lb 7.437 oz 11/08/17 11/09/17 11/10/17 06:59 06:59 06:59 Intake Total 1045 508.4 200 Output Total 450 168 530 Balance 595 340.4 -330 - Physical Examination General/Neuro: alert & oriented x3, NAD Lungs: other: (decreased BS at bases; no wheezing or rhonchi) Heart: RRR Abdomen: NT/ND Extremities: + edema B - Telemetry Telemetry Rhythm: SR 70s-90s - Labs Result Diagrams: 11/09/17 04:40 11/09/17 04:40 - Assessment/Plan 1. CAD s/p CABG x 2 with SOSA-LAD and left radial to D1 2. Severe s/p AVR 3. HELENA - Off vasopressin and with minimal urine output. Continue to monitor. Lasix given x 1 today. 4. Post-op AFib - after given dopamine. Now remains in NSR Slow progress. Rhythm stable. Third spaced, but now with improved urine output after lasix. Continue to monitor closely. Up to chair.
[2017-11-09 14:30] LABS: Anion Gap 16 mmol/L (10-20); BUN (Urea Nitrogen) 66 mg/dL (9.8-20.1); Calc. Creatinine Clearance 21 mL/min (70-130); Carbon Dioxide 17 mmol/L (23-31); Chloride 106 mmol/L (98-107); Estimated GFR-MDRD 19; Glucose 160 mg/dL (83-110); Potassium 4.7 mmol/L (3.5-5.1); Sodium 134 mmol/L (136-145)
[2017-11-09] MEDS: Metoprolol Tartrate 25 MG TAB PO SCH ×2 (15:10→20:37)
[2017-11-09] MEDS: Famotidine 20 MG TAB PO SCH (20:37)
[2017-11-09] MEDS: Atorvastatin Calcium 40 MG TAB PO SCH (20:37)
[2017-11-10] MEDS ORDERED: Digoxin 0.5 MG/2 ML AMP SLOW IVP SCH (01:00)
[2017-11-10 04:40] LABS: #Eosinphils 0.1 thou/uL (0.0-0.7); #Lymphocytes 2.6 thou/uL (1.20-3.40); #Monocytes 0.9 thou/uL (0.11-0.59); #Neutrophils 7.4 thou/uL (1.40-6.50); %Basophils 0.4 % (0.0-1.0); %Eosinophils 0.8 % (0.0-10.0); %Lymphocytes 23.7 % (21.0-51.0); %Neutrophils 67.1 % (42.0-75.0); Hemoglobin 9.4 g/dL (12.0-16.0); Mean Corpuscular HGB CONC 33.7 g/dL (32.0-36.0); Mean Corpuscular Hemoglobin 32.6 pg (27.0-31.0); Mean Corpuscular Volume 96.9 fl (81.0-99.0); Mean Platelet Volume 10.2 fL (7.4-10.4); Platelet Count 58 thou/uL (130-400); RBC Distribution Width 12.8 % (11.5-14.5); Red Blood Cell (RBC) Count 2.88 mill/uL (4.20-5.40)
[2017-11-10 05:03] LABS: Anion Gap 11 mmol/L (10-20); BUN (Urea Nitrogen) 67 mg/dL (9.8-20.1); Calc. Creatinine Clearance 26 mL/min (70-130); Calcium 7.8 mg/dL (7.8-10.44); Carbon Dioxide 20 mmol/L (23-31); Chloride 105 mmol/L (98-107); Estimated GFR-MDRD 24; Glucose 105 mg/dL (83-110); Potassium 4.3 mmol/L (3.5-5.1); Sodium 132 mmol/L (136-145)
[2017-11-10] MEDS ORDERED: Digoxin 0.5 MG/2 ML AMP SLOW IVP PRN (07:00)
[2017-11-10] MEDS: Aspirin 325 mg Enteric Coated Tablet PO SCH (08:39)
[2017-11-10] MEDS: Metoprolol Tartrate 25 MG TAB PO SCH ×2 (08:39→19:57)
--- NOTE | 2017-11-10 09:46 | PRG ---
DATE OF SERVICE: 11/10/2017 SERVICE: Pulmonary Medicine. INTERVAL HISTORY: The patient went into atrial fibrillation overnight. Otherwise, there were no daquan nts. She got a dose of digoxin. She remains in it. Blood pressures are okay. She seems to be tole rating for the time being. That being said, in an another 20-30 minutes, she is scheduled to get an another dose of digoxin. She denies any chest discomfort. She was unable to sleep last night until early this morning. She got Benadryl. It seem to knock around. She got a little bit of rest. PHYSICAL EXAMINATION: VITAL SIGNS: Afebrile, pulse 84, blood pressure 93/60, respirations 19, saturation 94% on 2 liters n lashay cannula. GENERAL: The patient is awake, alert, in no apparent distress. LUNGS: Decent air entry with no prolonged expiratory phase, wheezing, rhonchi or crackles. HEART: Normal rate. Irregular. ABDOMEN: Soft, nontender, nondistended. Bowel sounds are positive. MUSCULOSKELETAL: No cyanosis or clubbing. There is no pitting in the bilateral lower extremities. NEUROLOGIC: Grossly nonfocal. LABORATORY DATA: WBC 11.0, hemoglobin 9.4, platelets 58,000 and roughly stable. INR 1.5. Creatinin e 1.96 and down trending, BUN 67. Basic metabolic profile is otherwise unremarkable. ASSESSMENT: 1. Acute hypoxic respiratory failure. 2. Coronary artery bypass graft, postoperative day #04. 3. Atrial fibrillation with rapid ventricular response. 4. Acute kidney injury, improving. PLAN: We will continue our supportive care including rate control medications. From my perspective, she is stable for transition to the telemetry unit. Pulmonary and Critical Care will continue to fo llow for the time being.
[2017-11-10] MEDS: Atorvastatin Calcium 40 MG TAB PO SCH (19:56)
[2017-11-10] MEDS: Famotidine 20 MG TAB PO SCH (19:56)
[2017-11-11 04:53] LABS: Anion Gap 8 mmol/L (10-20); BUN (Urea Nitrogen) 58 mg/dL (9.8-20.1); Calc. Creatinine Clearance 38 mL/min (70-130); Calcium 7.9 mg/dL (7.8-10.44); Carbon Dioxide 23 mmol/L (23-31); Chloride 105 mmol/L (98-107); Estimated GFR-MDRD 39; Glucose 114 mg/dL (83-110); Potassium 4.2 mmol/L (3.5-5.1); Sodium 132 mmol/L (136-145)
[2017-11-11 05:21] LABS: #Eosinphils 0.2 thou/uL (0.0-0.7); #Lymphocytes 2.4 thou/uL (1.20-3.40); #Neutrophils 6.5 thou/uL (1.40-6.50); %Basophils 0.3 % (0.0-1.0); %Eosinophils 2.1 % (0.0-10.0); %Lymphocytes 23.6 % (21.0-51.0); %Monocytes 9.6 % (0.0-10.0); %Neutrophils 64.4 % (42.0-75.0); Hemoglobin 9.2 g/dL (12.0-16.0); MDiff Complete? YES; Macrocytosis SLIGHT = 6-15 cells (100X) (0-5/hpf); Mean Corpuscular HGB CONC 33.4 g/dL (32.0-36.0); Mean Corpuscular Hemoglobin 32.3 pg (27.0-31.0); Mean Corpuscular Volume 96.9 fl (81.0-99.0); Mean Platelet Volume 10.1 fL (7.4-10.4); PLT Morphology Comment Appears Decreased; Platelet Count 76 thou/uL (130-400); Red Blood Cell (RBC) Count 2.86 mill/uL (4.20-5.40)
--- NOTE | 2017-11-11 08:30 | RAD ---
PORTABLE CHEST: DATE: 11/11/17. PROVIDED CLINICAL HISTORY: Post open heart. FINDINGS: Comparison 11/08/17. Cardiac and mediastinal silhouette are unchanged in appearance. Right-sided john tral line, median sternotomy changes, and atherosclerosis are redemonstrated. Bibasilar pleural pare nchymal opacities appear similar to the prior study. No evidence for pneumothorax. IMPRESSION: Stable radiographic appearance of the chest. POS: [facility]
[2017-11-11] MEDS: Aspirin 325 mg Enteric Coated Tablet PO SCH (09:26)
[2017-11-11] MEDS: Metoprolol Tartrate 25 MG TAB PO SCH ×2 (09:26→21:22)
[2017-11-11] MEDS ORDERED: Artificial Tears 18 DROP/0.9 ML EA EYE PRN (13:11)
[2017-11-11] MEDS ORDERED: diphenhydrAMINE 25 MG CAP PO PRN (13:11)
[2017-11-11] MEDS ORDERED: Guaifenesin DM 100-10/5 ML UDCUP PO PRN (13:11)
[2017-11-11] MEDS ORDERED: Mag-Al 1200 mg/1200 mg/30 ML UDCUP PO PRN (13:11)
[2017-11-11] MEDS ORDERED: Bisacodyl 10 MG SUPP PR PRN (13:11)
[2017-11-11] MEDS ORDERED: Zolpidem Tartrate 5 MG TAB PO PRN (13:11)
[2017-11-11] MEDS ORDERED: Bisacodyl 5 MG TAB PO PRN (13:11)
[2017-11-11] MEDS ORDERED: Mineral Oil ENEMA PR PRN (13:11)
[2017-11-11] MEDS ORDERED: Nitroglycerin 0.4 MG TAB (25 Tab Bottle) SL PRN (13:11)
[2017-11-11] MEDS: Furosemide 20 MG TAB PO SCH (14:43)
[2017-11-11] MEDS: Atorvastatin Calcium 40 MG TAB PO SCH (21:21)
[2017-11-11] MEDS: Famotidine 20 MG TAB PO SCH ×2 (21:21→21:25)
[2017-11-12 05:46] LABS: Band 1 % (5-11); Eosinophils 2 % (0-10); Hemoglobin 9.7 g/dL (12.0-16.0); Lymphocytes 29 % (21-51); MDiff Complete? YES; Mean Corpuscular Hemoglobin 32.5 pg (27.0-31.0); Mean Corpuscular Volume 98.5 fl (81.0-99.0); Mean Platelet Volume 9.4 fL (7.4-10.4); Monocytes 4 % (0-10); Neutrophil 64 % (42-75); PLT Morphology Comment Appears Decreased; Platelet Count 108 thou/uL (130-400); RBC Distribution Width 13.6 % (11.5-14.5); White Blood Cell (WBC) Count 10.3 thou/uL (4.8-10.8)
[2017-11-12 05:54] LABS: Anion Gap 13 mmol/L (10-20); BUN (Urea Nitrogen) 44 mg/dL (9.8-20.1); Calc. Creatinine Clearance 48 mL/min (70-130); Calcium 7.8 mg/dL (7.8-10.44); Carbon Dioxide 17 mmol/L (23-31); Chloride 108 mmol/L (98-107); Estimated GFR-MDRD 52; Glucose 102 mg/dL (83-110); Potassium 3.9 mmol/L (3.5-5.1); Sodium 134 mmol/L (136-145)
[2017-11-12] MEDS ORDERED: Metolazone 5 MG TAB PO SCH (06:15)
[2017-11-12] MEDS: Aspirin 325 mg Enteric Coated Tablet PO SCH (07:23)
[2017-11-12] MEDS: Metoprolol Tartrate 25 MG TAB PO SCH ×2 (07:24→21:52)
[2017-11-12] MEDS: Furosemide 20 MG TAB PO SCH ×2 (07:24→13:47)
--- NOTE | 2017-11-12 19:25 | PRG ---
DATE OF SERVICE: 11/12/2017 SUBJECTIVE: Ms. Singh went into atrial fibrillation today. Her rate is controlled. She has no cu rrent symptoms. She is slowly improving. OBJECTIVE: VITAL SIGNS: Blood pressure 103/70, pulse 79, temperature 98. LUNGS: Clear to auscultation. HEART: Irregularly irregular. ABDOMEN: Soft, nontender, nondistended. EXTREMITIES: No edema. PERTINENT LABORATORY DATA: Hemoglobin 9.7, creatinine down to 1.02. IMPRESSION: 1. Coronary artery disease, status post bypass surgery. 2. Status post aortic valve replacement. 3. Postoperative atrial fibrillation. RECOMMENDATIONS: The patient's heart rate appears to be well controlled. We will discuss with Dr. Tapan orozco tomorrow about anticoagulation therapy. She may benefit from anticoagulation treatment at least for the next month. She is currently on metoprolol 12.5 b.i.d. and we will increase to 25 b.i.d.
[2017-11-12] MEDS: Atorvastatin Calcium 40 MG TAB PO SCH (21:52)
[2017-11-12] MEDS: Famotidine 20 MG TAB PO SCH (21:52)
--- NOTE | 2017-11-13 04:36 | PRG ---
DATE OF SERVICE: 11/11/2017 SERVICE: Pulmonary Medicine. INTERVAL HISTORY: The patient is doing a little better today. Her oxygen requirements have improved a little bit. Her strength is also improving a touch. She denies any chest pain, nausea, vomiting, or difficulty with breathing. PHYSICAL EXAMINATION: VITAL SIGNS: Afebrile. Pulse 77, blood pressure 116/71, respirations 22, and saturation 92% on 3 li ters nasal cannula. GENERAL: Patient is awake, alert, in no apparent distress. LUNGS: There was excellent air entry with no prolonged expiratory phase or wheezing present. Depend ent crackles are minimal. HEART: Normal rate, regular. ABDOMEN: Soft, nontender, nondistended. Bowel sounds are positive. MUSCULOSKELETAL: No cyanosis or clubbing. No pitting in the bilateral lower extremities. NEUROLOGIC: Grossly nonfocal. LABORATORY DATA: WBC 10.0, hemoglobin 9.2, platelets 76,000 and up trending. Creatinine continues t o improve to 1.29, BUN 58. Basic metabolic profile is otherwise stable/unremarkable. IMAGING: Chest x-ray demonstrates stable radiographic appearance of the chest. There is likely bila teral pleural effusions. Cardiac silhouette is slightly generous. This is a portable film however. Sternotomy wires are once again noted. There is a right-sided subclavian central venous catheter th at terminates in very good position. ASSESSMENT: 1. Acute hypoxic respiratory failure. 2. Coronary artery bypass graft and aortic valve replacement, postop day #5. 3. Atrial fibrillation with right ventricular response, currently rate controlled. 4. Acute kidney injury, resolving. 5. Bilateral pleural effusions, small. PLAN: I will continue to diurese the patient to euvolemia. We will continue mobilization efforts. Thornton catheter can be removed today. Pulmonary from my perspective, she is stable for transition out of the ICU. Pulmonary will continue to follow along if she remains in the hospital for the time zee crum. Dr. Gonzalez will resume care in the morning.
[2017-11-13 05:21] LABS: #Basophils 0.1 thou/uL (0.0-0.2); #Eosinphils 0.1 thou/uL (0.0-0.7); #Lymphocytes 2.4 thou/uL (1.20-3.40); #Neutrophils 7.4 thou/uL (1.40-6.50); %Basophils 0.5 % (0.0-1.0); %Eosinophils 1.1 % (0.0-10.0); %Lymphocytes 22.2 % (21.0-51.0); %Neutrophils 67.3 % (42.0-75.0); Hemoglobin 10.1 g/dL (12.0-16.0); Mean Platelet Volume 9.2 fL (7.4-10.4); Platelet Count 145 thou/uL (130-400); RBC Distribution Width 13.5 % (11.5-14.5); Red Blood Cell (RBC) Count 3.06 mill/uL (4.20-5.40); White Blood Cell (WBC) Count 10.9 thou/uL (4.8-10.8)
[2017-11-13 05:48] LABS: Anion Gap 13 mmol/L (10-20); BUN (Urea Nitrogen) 40 mg/dL (9.8-20.1); Calc. Creatinine Clearance 54 mL/min (70-130); Calcium 8.1 mg/dL (7.8-10.44); Carbon Dioxide 21 mmol/L (23-31); Chloride 104 mmol/L (98-107); Estimated GFR-MDRD 56; Glucose 117 mg/dL (83-110); Sodium 134 mmol/L (136-145)
[2017-11-13] MEDS ORDERED: Metolazone 5 MG TAB PO SCH (06:15)
[2017-11-13] MEDS: Metoprolol Tartrate 25 MG TAB PO SCH ×2 (09:20→20:43)
[2017-11-13] MEDS: Furosemide 20 MG TAB PO SCH ×2 (09:20→14:31)
[2017-11-13] MEDS: Aspirin 325 mg Enteric Coated Tablet PO SCH (09:20)
--- NOTE | 2017-11-13 19:06 | PRG ---
DATE OF SERVICE: 11/13/2017 SUBJECTIVE: Ms. Singh remains in atrial fibrillation. She has no current symptoms. She states sh e has been ambulating to the bathroom on her own. OBJECTIVE: VITAL SIGNS: Blood pressure 110/65, pulse 85, respirations 20. LUNGS: Clear to auscultation. CARDIAC: Irregularly irregular. ABDOMEN: Soft, nontender, nondistended. EXTREMITIES: No edema. IMPRESSION: 1. Postop atrial fibrillation. 2. Status post aortic valve replacement. 3. Status post bypass surgery. RECOMMENDATIONS: I would recommend anticoagulation therapy prior to discharge. She may convert back to sinus rhythm. I would also add amiodarone 400 mg q. b.i.d. until discharge, then decrease to 400 mg q.a.m. x1 month. Otherwise, continue beta federico therapy and statin treatment.
[2017-11-13] MEDS: Amiodarone 200 MG TAB PO SCH (20:42)
[2017-11-13] MEDS: Famotidine 20 MG TAB PO SCH (20:43)
[2017-11-13] MEDS: Atorvastatin Calcium 40 MG TAB PO SCH (20:43)
[2017-11-14] MEDS ORDERED: traMADol HCl 50 MG TAB PO PRN (05:51)
[2017-11-14] MEDS ORDERED: Apixaban 2.5 MG TAB PO SCH (09:00)
[2017-11-14] MEDS: Metoprolol Tartrate 25 MG TAB PO SCH (09:10)
[2017-11-14] MEDS: Amiodarone 200 MG TAB PO SCH (09:10)
[2017-11-14] MEDS: Aspirin 325 mg Enteric Coated Tablet PO SCH (09:10)
[2017-11-14] MEDS: Furosemide 20 MG TAB PO SCH ×2 (09:10→17:08)
[2017-11-14 11:31] LABS: Hemoglobin 9.5 g/dL (12.0-16.0); Platelet Count 195 thou/uL (130-400)
[2017-11-14 12:07] VITALS: TEMP 98.3
--- NOTE | 2017-11-14 13:13 | PDOC.CTH ---
Cardiology Progress Note - Subjective Patient c/o feeling weak, but much better overall. Denies any CP. Mild ZAMUDIO, but improving. - ROS shortness of breath - Objective Vital Signs Temp Pulse Pulse Pulse Resp BP BP 11/14/17 12:03 98.3 F 74 17 11/14/17 08:55 119 H 103 H 116/55 L 121/60 11/14/17 07:27 98.0 F 99 20 11/14/17 04:00 98.3 F 94 20 BP Pulse Ox Pulse Ox Pulse Ox 11/14/17 12:03 113/65 92 L 11/14/17 08:55 96 90 L 11/14/17 07:27 105/64 94 L 11/14/17 04:00 102/76 Weight 168 lb 11/13/17 11/14/17 11/15/17 06:59 06:59 06:59 Intake Total 1280 1200 Output Total 1300 900 Balance -20 300 - Physical Examination General/Neuro: alert & oriented x3, NAD Neck: no JVD present Lungs: CTA, other: (decreased BS at bases ) Heart: RRR Abdomen: NT/ND Extremities: other: (no edema) Other PE findings: Sternal wound and graft sites healing well without erythema or drainage. - Telemetry Telemetry Rhythm: SR - Labs Result Diagrams: 11/14/17 11:24 11/14/17 11:24 - Assessment/Plan 1. CAD s/p CABG x 2 2. Severe s/p AVR 3. Post-op AFib - only after given dopamine 4. HELENA - resolved Overall doing well. Still weak. Continue PT/cardiac rehab. Start discharge planning.
[2017-11-14 13:21] VITALS: BP 108/74
--- NOTE | 2017-11-14 13:26 | DIS ---
DIAGNOSES: 1. Aortic stenosis. 2. Coronary artery disease. 3. Hypertension. 4. Dyslipidemia. PROCEDURES: 1. Aortic valve replacement with a #19 Magna bioprosthetic valve. 2. Coronary bypass grafting x2 - 1) left internal mammary artery to LAD, 2) left radial artery to O M1. DESCRIPTION OF HOSPITAL STAY: Ms. Singh is an 82-year-old woman who was admitted for AVR CABG elec tively. Postoperatively, she has done about as well as you could expect from a diminutive elderly wo man after such a large procedure. She has had atrial fibrillation runs twice and has been started on amiodarone. She has also been anticoagulated with Eliquis for the short near term. Other than the arrhythmia she has had no complications after surgery. She was evaluated for rehab and she declined inpatient rehab. She is being discharged to home with multiple daughters to help care for her. At t he time of discharge, she is ambulatory, tolerating a regular diet, having good bowel and bladder fun ction. Incisions are clean and dry without evidence of infection. DISCHARGE MEDICATIONS: 1. Aspirin 81 mg every day. 2. Eliquis 2.5 mg b.i.d. 3. Amiodarone 400 mg daily. 4. Lipitor 40 mg at bedtime. 5. HCTZ 12.5 mg every day. 6. Lopressor 25 mg b.i.d. 7. Ultram 50 mg q.6 hours p.r.n. pain. FOLLOWUP: Follow up is with me in [address] Rivera in a month.
--- NOTE | 2017-11-15 06:26 | PQF ---
GERALDINE MORRIS CHARLES H MD [id number] [facility]-[id number] CLINICAL DOCUMENTATION CLARIFICATION FORM: POST DISCHARGE Addendum to original discharge summary date: 11/14/2017 DATE: 11/15/17 ATTN: Dr. Logan Please exercise your independent, professional judgment in responding to the clarification form. Clinical indicators are provided on the bottom of this form for your review Please check appropriate box(s): [ ] Postoperative atrial fibrillation is a postoperative complication related to current/recent surgery [ ] Acute hypoxic respiratory failure is a postoperative complication related to current/recent surgery [ ] Postoperative atrial fibrillation is not a postoperative complication related to current/recent surgery [ ] Acute hypoxic respiratory failure is not a postoperative complication related to current/recent surgery [ ] Other diagnosis (please specify) [ x ] Unable to determine In addition, please specify: Present on Admission (POA): [ ] Yes [ ] No [ ] Unable to determine CLINICAL INDICATORS - SIGNS / SYMPTOMS / LABS Per 11/13 progress note: Postop atrial fibrillation. Per 11/11 progress note: Acute hypoxic respiratory failure. Saturation 92% on 3 liters nasal cannula. Per 11/12 progress notes: Postoperative atrial fibrillation. Per 11/10 progress notes: The patient went into atrial fibrillation overnight. Atrial fibrillation with rapid ventricular response. Acute hypoxic respiratory failure. Saturation 94% on 2 linters nasal cannula. Per 11/09 progress note: She had atrial fibrillation with a dopamine. Per cardiology progress notes: Post-op AFib-only after given dopamine. Post- op AFib-after given dopamine. Now remains in NSR. RISK FACTORS (per operative report) Aortic valve replacement and CABG x 2 on 11/06/17. TREATMENT (per progress notes) Amiodarone 400 mg q b.i.d. 3L and 2L nasal cannula. Digoxin. Beta federico therapy and statin treatment. (This form is maintained as a part of the permanent medical record) 2014 [employer]. All Rights Reserved Ivonne [email or web address] [phone] [employer]
[2017-11-15] MEDS ORDERED: Amiodarone 200 MG TAB PO SCH (09:00)
== END 2017-11-14 15:00 | disposition home or self-care (01) | DRG 219 ==
LOC: SURG A 11-06 05:28 → CCU 11-06 10:54 → IMCU/EMU 11-08 10:39 → CCU 11-08 17:02 → 2NO 11-11 13:02
PROVIDERS: ADMIT Thoracic Surgery (Cardiothoracic Vascular Surgery); ATTEND Thoracic Surgery (Cardiothoracic Vascular Surgery)
PROC: 02RF08Z Replacement of Aortic Valve with Zooplastic Tissue, Open Approach (ICD-10-PCS; principal; 2017-11-06)
PROC: 02100A3 Bypass Coronary Artery, One Artery from Coronary Artery with Autologous Arterial Tissue, Open Approach (ICD-10-PCS; 2017-11-06)
PROC: 02100Z9 Bypass Coronary Artery, One Artery from Left Internal Mammary, Open Approach (ICD-10-PCS; 2017-11-06)
PROC: 5A1221Z Performance of Cardiac Output, Continuous (ICD-10-PCS; 2017-11-06)
DX: I35.9 Nonrheumatic aortic valve disorder, unspecified (principal); N17.0 Acute kidney failure with tubular necrosis; J96.01 Acute respiratory failure with hypoxia; I25.10 Atherosclerotic heart disease of native coronary artery without angina pectoris; I35.0 Nonrheumatic aortic (valve) stenosis; I48.91 Unspecified atrial fibrillation; I10 Essential (primary) hypertension; E78.5 Hyperlipidemia, unspecified; Z79.82 Long term (current) use of aspirin; Z79.899 Other long term (current) drug therapy
CPT/HCPCS: 36415; 36416; 36430; 71045; 80048; 82565; 82805; 85014; 85018; 85025; 85049; 85610; 85730; 86850; 86900; 86901; 93005; 93010; 93798; 94002; A4216; G8978-GP-CL; G8979-GP-CL; G8980-GP-CL; G8987-GO-CJ; G8988-GO-CH; J0360; J0690; J1160; J1265; J1642; J1644; J1815; J1885; J1940; J2001; J2250; J2270; J2440; J2550; J2704; J2720; J3010; J3370; J3475; J3480; J7050; P9035; P9045; P9047; S0017

== ENCOUNTER 2017-11-05 15:53 | Outpatient (CLI) | payer MEDICARE, OTHER | END 2017-11-05 15:54 | disposition home or self-care (01) | LOC: LABBT 15:53 | PROVIDERS: ATTEND Thoracic Surgery (Cardiothoracic Vascular Surgery) | DX: Z01.818 Encounter for other preprocedural examination (principal); I25.10 Atherosclerotic heart disease of native coronary artery without angina pectoris; I35.9 Nonrheumatic aortic valve disorder, unspecified | CPT/HCPCS: 36430; 86850; 86900; 86901 ==

== ENCOUNTER 2021-07-27 10:07 | Outpatient (CLI) | payer MEDICARE, OTHER | END 2021-07-27 10:08 | disposition home or self-care (01) | LOC: ULT 10:07 | PROVIDERS: ATTEND Family Medicine | DX: M79.89 Other specified soft tissue disorders (principal); M70.41 Prepatellar bursitis, right knee; M79.604 Pain in right leg; R06.02 Shortness of breath ==

== ENCOUNTER 2024-07-21 13:57 | Outpatient (CLI) | payer MEDICARE, OTHER ==
[2024-07-21 16:02] LABS: #Basophils 0.03 10x3/uL (0.0-0.2); %Basophils 0.5 % (0.0-1.0); %Eosinophils 3.9 % (0.0-10.0); %Lymphocytes 39.1 % (21.0-51.0); %Monocytes 8.7 % (0.0-10.0); %Neutrophils 47.6 % (42.0-75.0); Hematocrit 39.9 % (36.0-47.0); Hemoglobin 13.3 g/dL (12.0-16.0); Mean Corpuscular HGB CONC 33.3 g/dL (32.0-36.0); Mean Platelet Volume 11.4 fL (7.4-10.4); Platelet Count 178 10x3/uL (130-400); Red Blood Cell (RBC) Count 4.03 mill/uL (4.20-5.40)
[2024-07-21 16:22] LABS: ALT (SGPT) 29 U/L (8-55); AST (SGOT) 35 U/L (5-34); Albumin 3.9 g/dL (3.4-4.8); Alkaline Phosphatase 73 U/L (40-110); Anion Gap 13 mmol/L (10-20); BUN (Urea Nitrogen) 25 mg/dL (9.8-20.1); Bilirubin, Total 0.6 mg/dL (0.2-1.2); Calc. Creatinine Clearance 0 mL/min (70-130); Calcium 9.7 mg/dL (7.8-10.44); Carbon Dioxide 28 mmol/L (23-31); Chloride 105 mmol/L (98-107); Estimated GFR 50; Globulin 3.7 g/dL (2.4-3.5); Glucose 82 mg/dL (83-110); Potassium 4.2 mmol/L (3.5-5.1); Protein, Total 7.6 g/dL (5.8-8.1); Sodium 142 mmol/L (136-145)
== END 2024-07-21 13:58 | disposition home or self-care (01) ==
LOC: LABBT 13:57
PROVIDERS: ATTEND Internal Medicine Cardiovascular Disease
DX: Z01.812 Encounter for preprocedural laboratory examination (principal); I35.0 Nonrheumatic aortic (valve) stenosis
CPT/HCPCS: 80053; 85025

== ENCOUNTER 2024-07-25 10:04 | Day surgery (SDC) | payer MEDICARE, OTHER ==
[2024-07-21 14:07] VITALS: BMI 23.8
[2024-07-25] MEDS ORDERED: fentaNYL 50 mcg/mL 1 mL Vial ONE ×2 (11:26→16:02)
[2024-07-25] MEDS ORDERED: Adenosine 6 mg (2 mL) VIAL ONE (11:26)
[2024-07-25] MEDS ORDERED: Midazolam HCl 2 mg/2 ml Vial ONE (11:26)
[2024-07-25] MEDS ORDERED: Nitroglycerin 50 MG/250 ML BOT 0 ML ONE (11:27)
[2024-07-25] MEDS ORDERED: Heparin 10,000 UNITS/ 10 ML VIAL ONE (11:27)
[2024-07-25] MEDS ORDERED: Verapamil 5 MG/2 ML VIAL ONE (11:27)
[2024-07-25] MEDS ORDERED: hydrALAZINE 20 MG/ML VIAL ONE (12:22)
[2024-07-25] MEDS ORDERED: Acetaminophen/Codeine 30-300mg Tablet ONE (17:18)
== END 2024-07-25 18:10 | disposition home or self-care (01) ==
LOC: CCL 10:04
PROVIDERS: ATTEND Internal Medicine Cardiovascular Disease
PROC: 4A023N8 Measurement of Cardiac Sampling and Pressure, Bilateral, Percutaneous Approach (ICD-10-PCS; principal; 2024-07-25)
DX: I35.0 Nonrheumatic aortic (valve) stenosis (principal); I10 Essential (primary) hypertension; I25.10 Atherosclerotic heart disease of native coronary artery without angina pectoris; I45.10 Unspecified right bundle-branch block; M19.90 Unspecified osteoarthritis, unspecified site; F60.3 Borderline personality disorder; Z95.1 Presence of aortocoronary bypass graft; Z90.89 Acquired absence of other organs; Z79.82 Long term (current) use of aspirin; Z79.899 Other long term (current) drug therapy
CPT/HCPCS: 93460; C1769 ×4; C1894; J0360; J2250; J3010; 93461; 99152; 99153; C1751; J0153; J1644